=== PATIENT | male | born 1995 | race Caucasian/White ===

== ENCOUNTER 2016-04-16 15:20 | Emergency (ER) | payer MEDICAID, OTHER ==
[~2016-04-16] VITALS: Wt 62.0 kg
[~2016-04-16 15:20] MED LIST: IBUP-1542 PO; Levetiracetam PO
[2016-04-16] MEDS ORDERED: IBUPROFEN 600 MG TAB PO ONE (16:00)
--- NOTE | 2016-04-16 16:14 | RADRPT ---
PROCEDURE: Left third digit series CLINICAL INDICATION: Pain status post trauma TECHNIQUE: Three views. COMPARISON: Left wrist series 12/27/2014 FINDINGS: No fractures are noted. Joint spaces are well maintained. No erosions are identified. The soft tiss ues are unremarkable.. IMPRESSION: 1. Normal left third digit series RPTAT: HDC .Noemy Davis MD, MD Date Time Electronically viewed and signed by .Noemy Davis MD, on 04/16/2016 16:14 .C/
--- NOTE | 2016-04-16 16:28 | ERD ---
ER Documentation Chief Complaint Date/Time DATE: 04/16/16 TIME: 16:26 Chief Complaint left middle finger blunt trauma. no distress noted. HPI This 21-year-old male presents with left middle finger pain after trauma today. States that he hit it with a pole that he was pulling on. He has pain primarily at the left third PIP joint without restricted range of motion or weakness. He is a very tiny abrasion without bleeding or lacerations. ROS All systems reviewed and are negative except as per history of present illness. Medications Home Meds Active Scripts Ibuprofen* (Motrin*) 600 Mg Tab, 600 MG PO Q6, #30 TAB Prov:WIL HENSLEY PA-C 07/12/15 [Levetiracetam] 500 MG TAB No Conflict Check, 500 MG PO BID, TAB Prov:MARY ANN AHUMADA MD 12/28/14 Allergies Allergies: Coded Allergies: Penicillins (Verified Allergy, Mild, RASH, 12/28/14) PMhx/Soc History of Surgery: No Anesthesia Reaction: No Hx Neurological Disorder: No Hx Respiratory Disorders: Yes (ASTHMA,) Hx Cardiac Disorders: No Hx Psychiatric Problems: No Hx Miscellaneous Medical Probl: No Hx Alcohol Use: No Hx Substance Use: No Hx Tobacco Use: No Smoking Status: Never smoker Physical Exam Vitals Vital Signs Date Time Temp Pulse Resp B/P Pulse Ox O2 Delivery O2 Flow Rate FiO2 04/16/16 15:33 98.8 69 20 124/89 98 Physical Exam Const: [] Alert, [id number]. Head: Atraumatic Eyes: Normal Conjunctiva ENT: Normal External Ears, Nose and Mouth. Neck: Full range of motion..~ No meningismus. Resp: Clear to auscultation bilaterally Cardio: Regular rate and rhythm, no murmurs Abd: Soft, non tender, non distended. Normal bowel sounds Skin: No petechiae or rashes Back: No midline or flank tenderness Ext: No cyanosis, or edema. There is mild tenderness and swelling around the left third PIP joint. There is no appreciable deformities. Patient is full range of motion flexion extension of the MCP, PIP and DIP joints. There is a very superficial abrasion medially to the PIP joint. Neur: Awake and alert Psych: Normal Mood and Affect Results 24 hrs Current Medications Medications (Trade) Dose Ordered Sig/Héctor Route PRN Reason Start Time Stop Time Status Last Admin Dose Admin Ibuprofen (Motrin) 600 mg ONCE ONCE PO 04/16/16 16:00 04/16/16 16:01 DC Procedures/MDM X-ray left middle finger 2V Interpreted by me: Bones: [No fracture] Joints: [No dislocation] Foreign body: [None]. Impression-normal left middle finger x-ray Patient was placed in a left middle finger extension metal splint. Patient was neurovascular intact after splint. Patient presents with a small abrasion and appears to be a left middle finger sprain without evidence of fracture, dislocation, tendon or neurologic deficit or bacterial infection. We treated at home with a splint and further observation. He is advised to follow-up with primary doctor for persistent pain this week or return for fevers, redness, new symptoms. Departure Diagnosis: Primary Impression: Finger injury Encounter type: initial encounter Laterality: left Qualified Code: S69.92XA - Finger injury, left, initial encounter Condition: Stable Patient Instructions: Sprain Finger Additional Instructions: X-ray read as normal. Recheck with primary doctor orthopedist for pain next week. Use splint until pain resolves. Recheck sooner for fevers, redness, new symptoms. Take Tylenol or Advil for pain. GISELLE BAUTISTA MD Apr 16, 2016 16:27
== END 2016-04-16 17:23 | disposition home or self-care (01) ==
LOC: FTE 15:20
DX: S69.92XA Unspecified injury of left wrist, hand and finger(s), initial encounter (principal); J45.909 Unspecified asthma, uncomplicated; W22.09XA Striking against other stationary object, initial encounter; Y92.9 Unspecified place or not applicable
CPT/HCPCS: 29130; 73140; Z7502; Z7610

== ENCOUNTER 2017-08-24 17:27 | Emergency (ER) | END 2017-08-24 17:35 | disposition home or self-care (01) ==

== ENCOUNTER 2018-04-08 15:46 | Emergency (ER) | payer MEDICAID, OTHER ==
[~2018-04-08] VITALS: Wt 50.0 kg
[~2018-04-08 15:46] MED LIST changes: +CYCL10TA7 PO; +IBUP800T48 PO
[2018-04-08] MEDS ORDERED: ONDANSETRON (ODT) 4 MG TAB ODT STA (16:08)
[2018-04-08] MEDS ORDERED: ACETAMINOPHEN 325 MG TAB PO ONE (16:30)
[2018-04-08] MEDS ORDERED: KETOROLAC 30 MG INJ IM STA (17:45)
[2018-04-08] MEDS ORDERED: ACET500C5 PO (18:19)
[2018-04-08] MEDS ORDERED: ONDA4TAB14 PO (18:19)
--- NOTE | 2018-04-08 18:31 | ERD ---
ER Documentation Chief Complaint Chief Complaint abd pain, nausea, diarrhea, chills, bodyaches, fever HPI 23-year-old male patient with no significant past medical history presents to the ED stating that he has vomiting and diarrhea and when he has these few episodes of nonbilious nonbloody vomiting and nonmucoid nonbloody diarrhea, he has abdominal pain associated with it. Denies any current abdominal pain. States that he has body aches. Reports that he feels chills. Denies any chest pain, shortness of breath, constipation, neck stiffness. ROS All systems reviewed and are negative except as per history of present illness. Medications Home Meds Active Scripts Acetaminophen* (Tylophen*) 500 Mg Capsule, 1 CAP PO Q6H PRN for PAIN AND OR ELEVATED TEMP, #20 CAP Prov:VALENCIA REEVES PA-C 04/08/18 Ondansetron (Ondansetron Odt) 4 Mg Tab.rapdis, 4 MG PO Q6H PRN for NAUSEA AND/OR VOMITING, #10 TAB Prov:VALENCIA REEVES PA-C 04/08/18 Ibuprofen* (Motrin*) 800 Mg Tab, 800 MG PO Q6, #30 TAB Prov:GUILLERMO ENNIS PA-C 08/24/17 Cyclobenzaprine Hcl* (Cyclobenzaprine Hcl*) 10 Mg Tablet, 10 MG PO BID, #15 TAB Prov:GUILLERMO ENNIS PA-C 08/24/17 Ibuprofen* (Motrin*) 600 Mg Tab, 600 MG PO Q6, #30 TAB Prov:WIL HENSLEY PA-C 07/12/15 [Levetiracetam] 500 MG TAB No Conflict Check, 500 MG PO BID, TAB Prov:MARY ANN AHUMADA MD 12/28/14 Allergies Allergies: Coded Allergies: Penicillins (Verified Allergy, Mild, RASH, 12/28/14) PMhx/Soc Medical and Surgical Hx: pt denies Medical Hx, pt denies Surgical Hx History of Surgery: No Anesthesia Reaction: No Hx Neurological Disorder: No Hx Respiratory Disorders: Yes (ASTHMA,) Hx Cardiac Disorders: No Hx Psychiatric Problems: No Hx Miscellaneous Medical Probl: No Hx Alcohol Use: No Hx Substance Use: No Hx Tobacco Use: No Smoking Status: Never smoker FmHx Family History: No diabetes, No coronary disease Physical Exam Vitals Vital Signs Date Temp Pulse Resp B/P (MAP) Pulse Ox O2 O2 Flow FiO2 Time Delivery Rate 04/08/18 99.5 111 20 121/68 98 15:52 (85) Physical Exam Const: [id number], well-nourished. In no acute distress. Head: Atraumatic, normocephalic Eyes: Normal Conjunctiva without injection. No purulent discharge. ENT: Normal external ear, nose. Moist oropharynx without tonsillar exudates. Non-erythematous pharynx. Uvula midline. No drooling. No trismus. Neck: No cervical midline tenderness. Full range of motion. No meningismus. No cervical lymphadenopathy. No JVD. Resp: Clear to auscultation bilaterally. No wheezing, rhonchi, rales, or crackles. No accessory muscle use. No retractions. Cardio: Regular rate and rhythm. No murmurs, rubs or gallops. Abd: Soft, nontender, non distended. Normal bowel sounds. No palpable masses. No rebound tenderness. No guarding. Negative McBurney's point. Negative psoas sign. Negative obturator sign. Skin: No petechiae or rashes Back: No midline tenderness. No CVA tenderness. Ext: No cyanosis, or edema. Neur: Awake and alert. Normal gait. Normal coordination. Psych: Normal Mood and Affect Results 24 hrs Current Medications Medications Dose Sig/Héctor Start Time Status Last (Trade) Ordered Route PRN Stop Time Admin Dose Reason Admin Ondansetron 4 mg ONCE STAT 04/08/18 DC 04/08/18 HCl (Zofran ODT 16:08 04/08/18 16:19 Odt) 16:10 650 mg ONCE ONCE 04/08/18 DC 04/08/18 Acetaminophen PO 16:30 04/08/18 16:19 (Tylenol 16:31 Tab) Ketorolac 30 mg ONCE STAT 04/08/18 DC 04/08/18 Tromethamine IM 17:45 04/08/18 17:58 (Toradol) 17:46 Procedures/MDM 23-year-old male patient with no significant past medical history presents to the ED complaining of vomiting, diarrhea, slight abdominal pain. Patient is afebrile and nontoxic-appearing. Patient was given Zofran, Tylenol, Toradol 30 mg IM with improvement of his symptoms. Patient tolerated oral intake. Patient had a successful p.o. challenge. Patient reports that his body aches have also improved. Patient symptoms are likely secondary to viral etiology. Low suspicion for testicular torsion, gastritis, GERD, peptic ulcer disease, cholecystitis, choledocholithiasis, cholangitis, pancreatitis, appendicitis, bowel obstruction, ileus, volvulus, nephrolithiasis, pyelonephritis, hepatitis, perforated viscus, diverticulitis, abdominal hernia, acute abdomen, mesenteric ischemia or other emergent conditions. Diagnosis: Vomiting and Diarrhea Discharge medications: Tylenol, Zofran Follow up with primary care physician in 1-2 days. Instructed patient to return to the ED sooner for any worsening symptoms. Patient's questions were answered. Patient is hemodynamically stable. Patient understood and agreed with discharge plan. Patient discharged stable. Disclaimer: Inadvertent spelling and grammatical errors are likely due to EHR/dictation software use and do not reflect on the overall quality of patient care. Also, please note that the electronic time recorded on this note does not necessarily reflect the actual time of the patient encounter. Departure Diagnosis: Primary Impression: Vomiting and diarrhea Condition: Stable Patient Instructions: Self-Care for Vomiting and Diarrhea, Diet, Vomiting Or Diarrhea [6Yr-Adult], Vomiting And Diarrhea, Nonspecific (Adult) Referrals: [facility] YOU HAVE RECEIVED A MEDICAL SCREENING EXAM AND THE RESULTS INDICATE THAT YOU DO NOT HAVE A CONDITION THAT REQUIRES URGENT TREATMENT IN THE EMERGENCY DEPARTMENT. FURTHER EVALUATION AND TREATMENT OF YOUR CONDITION CAN WAIT UNTIL YOU ARE SEEN IN YOUR DOCTORS OFFICE WITHIN THE NEXT 1-2 DAYS. IT IS YOUR RESPONSIBILITY TO MAKE AN APPOINTMENT FOR FOLOW-UP CARE. IF YOU HAVE A PRIMARY DOCTOR --you should call your primary doctor and schedule an appointment IF YOU DO NOT HAVE A PRIMARY DOCTOR YOU CAN CALL OUR PHYSICIAN REFERRAL HOTLINE AT IF YOU CAN NOT AFFORD TO SEE A PHYSICIAN YOU CAN CHOSE FROM THE FOLLOWING [facility] [address] [facility] [address] [facility] [facility] [address] [facility] [address] [facility] [facility] [address] [facility]. [facility] [address] [facility]. [facility] YOU HAVE RECEIVED A MEDICAL SCREENING EXAM AND THE RESULTS INDICATE THAT YOU DO NOT HAVE A CONDITION THAT REQUIRES URGENT TREATMENT IN THE EMERGENCY DEPARTMENT. FURTHER EVALUATION AND TREATMENT OF YOUR CONDITION CAN WAIT UNTIL YOU ARE SEEN IN YOUR DOCTORS OFFICE WITHIN THE NEXT 1-2 DAYS. IT IS YOUR RESPONSIBILITY TO MAKE AN APPOINTMENT FOR FOLOW-UP CARE. IF YOU HAVE A PRIMARY DOCTOR --you should call your primary doctor and schedule and appointment IF YOU DO NOT HAVE A PRIMARY DOCTOR YOU CAN CALL OUR PHYSICIAN REFERRAL HOTLINE AT . IF YOU CAN NOT AFFORD TO SEE A PHYSICIAN YOU CAN CHOSE FROM THE FOLLOWING [facility] INSTITUTIONS: [facility] [address] [place] [address] [facility] [address] [place] [address] [facility] [address] [place] [address] [facility]ENT C[facility]SPECIALTIES Additional Instructions: Call your primary care doctor TOMORROW for an appointment during the next 2-3 days.See the doctor sooner or return here if your condition worsens before your appointment time. VALENCIA REEVES PA-C Apr 08, 2018 18:31
[2018-04-08 18:38] VITALS: BP 118/62; PULSE 77; RESP 18
== END 2018-04-08 18:38 | disposition home or self-care (01) ==
LOC: FTE 15:46
DX: R19.7 Diarrhea, unspecified (principal); J45.909 Unspecified asthma, uncomplicated; R11.2 Nausea with vomiting, unspecified
CPT/HCPCS: 96372; J1885; Z7502; Z7610

== ENCOUNTER 2018-04-13 15:21 | Emergency (ER) | payer SELFPAY ==
[~2018-04-13] VITALS: Ht 172.7 cm; Wt 56.2 kg
[~2018-04-13 15:21] MED LIST changes: +ACET500C5 PO; +ONDA4TAB14 PO
[2018-04-13 15:31] VITALS: Ht 172.7 cm; Wt 56.2 kg
== END 2018-04-13 19:13 | disposition left against medical advice (07) ==
LOC: FTE 15:21
DX: Z53.21 Procedure and treatment not carried out due to patient leaving prior to being seen by health care provider (principal)